=== PATIENT | male | born 1990 | race African-American/Black ===

== ENCOUNTER 2019-08-20 22:24 | Emergency (ER) | payer OTHER ==
[~2019-08-20] VITALS: Ht 177.8 cm; Wt 88.5 kg
[2019-08-20] MEDS ORDERED: FLEXERIL PO (22:38)
[2019-08-20] MEDS ORDERED: IBUPROFEN 400400 M2 PO (22:38)
[2019-08-20 22:59] VITALS: BP 110/42
== END 2019-08-20 22:57 | disposition home or self-care (01) ==
LOC: ER 22:24
DX: M62.830 Muscle spasm of back (principal); M54.5 Low back pain; V89.2XXA Person injured in unspecified motor-vehicle accident, traffic, initial encounter; Y92.89 Other specified places as the place of occurrence of the external cause; Y99.8 Other external cause status